=== PATIENT | male | born 1970 | race Caucasian/White ===

== ENCOUNTER 2025-10-15 07:17 | Inpatient (IN) | payer OTHER, SELFPAY ==
[2025-10-15 08:05] LABS: Actual Bicarbonate (HCO3v) 26.7 mEq/L (22-28); Analyzer IN Cardio ER; Base Excess 3.0 mEq/L (-2.0 to +3.0); Calcium, Ionized (venous) 1.18 mmol/L (1.16-1.32); Chloride (VBG) 98 mmol/L (98-106); Hematocrit-VBG 38 % (42.0-52.0); Hemoglobin (Hb) 12.8 g/dL (13.1-17.2); Potassium (VBG) 4.10 mmol/L (3.70-5.30); Sodium 133 mmol/L (133-146)
[2025-10-15] MEDS ORDERED: Ketorolac Tromethamine 30 MG (1 mL) VIAL ONE (08:05)
[2025-10-15] MEDS ORDERED: Azithromycin 500 MG VIAL ONE (08:05)
[2025-10-15] MEDS ORDERED: Acetaminophen 325 MG TAB ONE (08:05)
[2025-10-15] MEDS ORDERED: cefTRIAXone (ROCEPHIN) 2 GM VIAL ONE (08:05)
[2025-10-15 08:13] LABS: #Basophils 0.05 10x3/uL (0.0-0.2); #Eosinophils 0.11 10x3/uL (0.0-0.7); #Monocytes 1.18 10x3/uL (0.11-0.59); #Neutrophils 16.62 10x3/uL (1.40-6.50); %Basophils 0.2 % (0.0-1.0); %Eosinophils 0.5 % (0.0-10.0); %Lymphocytes 9.8 % (21.0-51.0); %Monocytes 5.8 % (0.0-10.0); %Neutrophils 82.4 % (42.0-75.0); Hematocrit 32.7 % (42.0-52.0); Hemoglobin 11.2 g/dL (14.0-18.0); Mean Corpuscular Hemoglobin 31.7 pg (27.0-31.0); Mean Corpuscular Volume 92.6 fL (78.0-98.0); Platelet Count 542 10x3/uL (130-400); Red Blood Cell (RBC) Count 3.53 mill/uL (4.70-6.10); White Blood Cell (WBC) Count 20.21 10x3/uL (4.8-10.8)
[2025-10-15 08:27] LABS: ALT (SGPT) 99 U/L (Less than 45); AST (SGOT) 67 U/L (11-34); Albumin 2.4 g/dL (3.1-4.5); Alkaline Phosphatase 294 U/L (40-110); Anion Gap 15 mmol/L (10-20); BUN (Urea Nitrogen) 9 mg/dL (8.4-25.7); Bilirubin, Total 1.2 mg/dL (0.3-1.2); Calc. Creatinine Clearance 0 mL/min (70-130); Calcium 9.0 mg/dL (7.8-10.44); Carbon Dioxide 24 mmol/L (22-29); Chloride 98 mmol/L (98-107); Globulin 5.2 g/dL (2.4-3.5); Glucose 122 mg/dL (70-105); Potassium 4.2 mmol/L (3.5-5.1); Sodium 133 mmol/L (136-145)
[2025-10-15] MEDS ORDERED: Melatonin 3 MG TAB PO PRN (10:01)
[2025-10-15 11:57] VITALS: BMI 26.6
[2025-10-15 12:28] LABS: Strep pneumo Urine Ag NEGATIVE (NEGATIVE)
[2025-10-15] MEDS: Benzonatate 100 MG CAP PO SCH (13:02)
[2025-10-15] MEDS: Albuterol 200 PUFF (6.7GM INHALER) INH PRN (14:16)
[2025-10-15] MEDS: Acetaminophen 325 MG TAB PO PRN (16:55)
[2025-10-15] MEDS: Famotidine 20 MG TAB PO SCH (20:15)
[2025-10-15] MEDS: GUAIFENESIN SF SOLN 200 MG/10 ML UDCUP PO PRN (22:23)
[2025-10-16 06:17] LABS: #Basophils 0.03 10x3/uL (0.0-0.2); #Eosinophils 0.15 10x3/uL (0.0-0.7); #Monocytes 1.01 10x3/uL (0.11-0.59); #Neutrophils 10.20 10x3/uL (1.40-6.50); %Basophils 0.2 % (0.0-1.0); %Eosinophils 1.1 % (0.0-10.0); %Lymphocytes 16.4 % (21.0-51.0); %Monocytes 7.3 % (0.0-10.0); %Neutrophils 73.6 % (42.0-75.0); Hematocrit 30.1 % (42.0-52.0); Hemoglobin 9.9 g/dL (14.0-18.0); Mean Corpuscular Hemoglobin 31.3 pg (27.0-31.0); Mean Corpuscular Volume 95.3 fL (78.0-98.0); Platelet Count 554 10x3/uL (130-400); Red Blood Cell (RBC) Count 3.16 mill/uL (4.70-6.10); White Blood Cell (WBC) Count 13.86 10x3/uL (4.8-10.8)
[2025-10-16 06:38] LABS: ALT (SGPT) 101 U/L (Less than 45); AST (SGOT) 68 U/L (11-34); Albumin 2.1 g/dL (3.1-4.5); Alkaline Phosphatase 281 U/L (40-110); Anion Gap 17 mmol/L (10-20); BUN (Urea Nitrogen) 8 mg/dL (8.4-25.7); Bilirubin, Total 0.9 mg/dL (0.3-1.2); Calc. Creatinine Clearance 127 mL/min (70-130); Calcium 8.6 mg/dL (7.8-10.44); Carbon Dioxide 23 mmol/L (22-29); Chloride 98 mmol/L (98-107); Globulin 4.7 g/dL (2.4-3.5); Glucose 99 mg/dL (70-105); Potassium 4.1 mmol/L (3.5-5.1); Sodium 134 mmol/L (136-145)
[2025-10-16] MEDS: Ketorolac Tromethamine 30 MG (1 mL) VIAL IVP PRN (06:57)
[2025-10-16] MEDS: Enoxaparin 40 MG (0.4 mL) SYRINGE SC SCH (07:57)
[2025-10-16] MEDS: cefTRIAXone\\ROCEPHIN 1 GM in Sodium Chloride 0.9% 100 ML IVPB SCH (07:57)
[2025-10-16] MEDS: FLU (Fluarix Triv) 25-26 (6MOS UP)/PF 45 MCG/0.5 ML Syringe IM ONE (08:04)
[2025-10-16] MEDS: Azithromycin 500 MG in Sodium Chloride 0.9% 250 ML 250 ML IVPB SCH (08:48)
[2025-10-17] MEDS: Dextromethorphan Polistirex 60 MG/10 ML ER.12 HR UDCUP PO PRN
[2025-10-17 05:40] LABS: #Basophils 0.04 10x3/uL (0.0-0.2); #Eosinophils 0.14 10x3/uL (0.0-0.7); #Monocytes 0.92 10x3/uL (0.11-0.59); #Neutrophils 7.24 10x3/uL (1.40-6.50); %Basophils 0.4 % (0.0-1.0); %Eosinophils 1.3 % (0.0-10.0); %Lymphocytes 21.1 % (21.0-51.0); %Monocytes 8.5 % (0.0-10.0); %Neutrophils 66.9 % (42.0-75.0); Hematocrit 29.3 % (42.0-52.0); Hemoglobin 9.7 g/dL (14.0-18.0); Mean Corpuscular Hemoglobin 31.7 pg (27.0-31.0); Mean Corpuscular Volume 95.8 fL (78.0-98.0); Platelet Count 561 10x3/uL (130-400); Red Blood Cell (RBC) Count 3.06 mill/uL (4.70-6.10); White Blood Cell (WBC) Count 10.82 10x3/uL (4.8-10.8)
[2025-10-17 05:56] LABS: ALT (SGPT) 116 U/L (Less than 45); AST (SGOT) 77 U/L (11-34); Albumin 2.1 g/dL (3.1-4.5); Alkaline Phosphatase 298 U/L (40-110); Anion Gap 12 mmol/L (10-20); BUN (Urea Nitrogen) 7 mg/dL (8.4-25.7); Bilirubin, Direct 0.3 mg/dL (0.1-0.3); Bilirubin, Total 0.6 mg/dL (0.3-1.2); Calc. Creatinine Clearance 133 mL/min (70-130); Calcium 8.5 mg/dL (7.8-10.44); Carbon Dioxide 23 mmol/L (22-29); Chloride 103 mmol/L (98-107); Glucose 114 mg/dL (70-105); Potassium 4.2 mmol/L (3.5-5.1); Sodium 134 mmol/L (136-145)
[2025-10-17 06:19] LABS: Hep A IgM AB NONREACTIVE (NonReactive); Hep A IgM S/CO 0.26 S/CO (0-0.79); Hep B Core IgM Index 0.07 S/CO (0-0.79); Hep B Surf Ag NONREACTIVE S/CO (NonReactive); Hep C IgG Ab NONREACTIVE S/CO (NonReactive); Hep C Index 0.19 S/CO (0-0.79)
[2025-10-17] MEDS: Azithromycin 250 MG TAB PO SCH (09:19)
[2025-10-17] MEDS: cefTRIAXone\\ROCEPHIN 2 GM in Sodium Chloride 0.9% 100 ML IVPB SCH (09:32)
[2025-10-18 05:09] LABS: #Basophils 0.06 10x3/uL (0.0-0.2); #Eosinophils 0.21 10x3/uL (0.0-0.7); #Monocytes 1.03 10x3/uL (0.11-0.59); #Neutrophils 6.95 10x3/uL (1.40-6.50); %Basophils 0.5 % (0.0-1.0); %Eosinophils 1.9 % (0.0-10.0); %Lymphocytes 23.7 % (21.0-51.0); %Monocytes 9.2 % (0.0-10.0); %Neutrophils 62.0 % (42.0-75.0); Hematocrit 31.5 % (42.0-52.0); Hemoglobin 10.6 g/dL (14.0-18.0); Mean Corpuscular Hemoglobin 31.8 pg (27.0-31.0); Mean Corpuscular Volume 94.6 fL (78.0-98.0); Platelet Count 622 10x3/uL (130-400); Red Blood Cell (RBC) Count 3.33 mill/uL (4.70-6.10); White Blood Cell (WBC) Count 11.20 10x3/uL (4.8-10.8)
[2025-10-18 05:26] LABS: ALT (SGPT) 101 U/L (Less than 45); AST (SGOT) 63 U/L (11-34); Albumin 2.2 g/dL (3.1-4.5); Alkaline Phosphatase 304 U/L (40-110); Anion Gap 13 mmol/L (10-20); BUN (Urea Nitrogen) 8 mg/dL (8.4-25.7); Bilirubin, Direct 0.3 mg/dL (0.1-0.3); Bilirubin, Total 0.6 mg/dL (0.3-1.2); Calc. Creatinine Clearance 120 mL/min (70-130); Calcium 8.9 mg/dL (7.8-10.44); Carbon Dioxide 24 mmol/L (22-29); Chloride 101 mmol/L (98-107); Glucose 105 mg/dL (70-105); Potassium 4.3 mmol/L (3.5-5.1); Sodium 134 mmol/L (136-145)
[2025-10-19 05:19] LABS: #Basophils 0.04 10x3/uL (0.0-0.2); #Eosinophils 0.23 10x3/uL (0.0-0.7); #Monocytes 1.08 10x3/uL (0.11-0.59); #Neutrophils 9.34 10x3/uL (1.40-6.50); %Basophils 0.3 % (0.0-1.0); %Eosinophils 1.7 % (0.0-10.0); %Lymphocytes 18.4 % (21.0-51.0); %Monocytes 8.0 % (0.0-10.0); %Neutrophils 69.1 % (42.0-75.0); Hematocrit 31.3 % (42.0-52.0); Hemoglobin 10.2 g/dL (14.0-18.0); Mean Corpuscular Hemoglobin 31.8 pg (27.0-31.0); Mean Corpuscular Volume 97.5 fL (78.0-98.0); Platelet Count 618 10x3/uL (130-400); Red Blood Cell (RBC) Count 3.21 mill/uL (4.70-6.10); White Blood Cell (WBC) Count 13.52 10x3/uL (4.8-10.8)
[2025-10-19 05:33] LABS: ALT (SGPT) 99 U/L (Less than 45); AST (SGOT) 78 U/L (11-34); Albumin 2.3 g/dL (3.1-4.5); Alkaline Phosphatase 301 U/L (40-110); Anion Gap 10 mmol/L (10-20); BUN (Urea Nitrogen) 10 mg/dL (8.4-25.7); Bilirubin, Direct 0.2 mg/dL (0.1-0.3); Bilirubin, Total 0.3 mg/dL (0.3-1.2); Calc. Creatinine Clearance 115 mL/min (70-130); Calcium 8.8 mg/dL (7.8-10.44); Carbon Dioxide 24 mmol/L (22-29); Chloride 103 mmol/L (98-107); Glucose 124 mg/dL (70-105); Potassium 4.2 mmol/L (3.5-5.1); Sodium 133 mmol/L (136-145)
[2025-10-19 16:13] VITALS: BP 109/70; TEMP 98.4
== END 2025-10-19 16:14 | disposition home or self-care (01) | DRG 193 ==
LOC: ERS 07:17 → SURG B 10:35
PROVIDERS: ADMIT Internal Medicine; ATTEND Internal Medicine
DX: J14 Pneumonia due to Hemophilus influenzae (principal); J96.01 Acute respiratory failure with hypoxia; S36.119A Unspecified injury of liver, initial encounter; E87.1 Hypo-osmolality and hyponatremia; F17.210 Nicotine dependence, cigarettes, uncomplicated; Z71.6 Tobacco abuse counseling; D64.9 Anemia, unspecified; R79.89 Other specified abnormal findings of blood chemistry
CPT/HCPCS: 36415; 71045; 80048; 80053; 80074; 80076; 82805; 83605; 85025; 87040; 87070; 87077; 87116; 87205; 87206; 87899; 93005; 94640; 94760; 96365; 96366; 96367; 96375; J0456; J0696; J1650; J1885; J7030; J7050